=== PATIENT | male | born 1990 | race Asian ===

== ENCOUNTER 2020-01-07 10:41 | Emergency (ER) | payer OTHER ==
[~2020-01-07] VITALS: Ht 165.1 cm; Wt 74.0 kg
[2020-01-07] MEDS ORDERED: FAMOTIDINE 20 MG/2 ML VIAL IVP ONE (12:45)
[2020-01-07] MEDS ORDERED: ONDANSETRON PF 4 MG/2 ML VIAL. IV ONE (12:45)
[2020-01-07] MEDS ORDERED: KETOROLAC 15 MG/ML VIAL. IVP ONE (12:45)
[2020-01-07 12:46] LABS: BASO # 0.1 x10^3/uL (0.0-0.2); BASO % 1 % (0-3); EOS # 0.4 x10^3/uL (0.0-0.7); EOS % 4 % (0-3); HEMATOCRIT 47.3 % (39.0-53.0); HEMOGLOBIN 16.8 g/dL (13.0-17.5); LYMPH # 3.6 x10^3/uL (1.0-4.8); LYMPH % 33 % (24-48); MEAN CORPUSCULAR HEMOGLOBIN 31 pg (25-35); MEAN CORPUSCULAR HGB CONC 36 g/dL (31-37); MEAN CORPUSCULAR VOLUME 87 fL (79-100); MONO # 0.8 x10^3/uL (0.0-1.1); MONO % 8 % (0-9); NEUT % 55 % (31-73); PLATELET COUNT 163 x10^3/uL (140-400); RED BLOOD COUNT 5.43 x10^6/uL (4.30-5.70); RED CELL DISTRIBUTION WIDTH 13.5 % (11.5-14.5); WHITE BLOOD COUNT 10.9 x10^3/uL (4.0-11.0)
[2020-01-07 12:50] LABS: BILIRUBIN,URINE NEGATIVE (NEG); CLARITY,URINE CLEAR; COLOR,URINE YELLOW; NITRITE,URINE NEGATIVE (NEG); PH,URINE 5.5; PROTEIN,URINE NEGATIVE (NEG-TRACE); UROBILINOGEN,URINE 0.2 mg/dL (0.2 mg/dL)
--- NOTE | 2020-01-07 12:51 | PHYS DOC ---
Past Medical History Past Medical History: No Pertinent History Past Surgical History: No Surgical History Smoking Status: Current Every Day Smoker Alcohol Use: Occasionally Drug Use: None Adult General Chief Complaint Chief Complaint: ABDOMINAL PAIN HPI HPI Patient is a 29 year old male who presents to the ED with epigastric abdominal discomfort. He stated that the discomfort began Tuesday after eating a spicy meal. He states that the pain is a tightness that is similar to when you eat too much or drink too much. He states the pain has been constant since Tuesday and that's what brought him into the ED. He has tried [place] juice to help the pain it was unsuccessful. He states that laying on his back makes the pain worse and it is improved by laying on his stomach. He also states that eating makes the pain worse. He denies any radiation of the pain. He denies nausea, vomiting ,constipation, or diarrhea. He states his last bowel movement was earlier this morning and it was a normal. He rated the pain as 7-8 out of 10 at its worse after a meal. He currently rates it as a 5 out of 10. His last meal was last night and he last drank this morning prior to being seen. Review of Systems Review of Systems Constitutional: Denies fever or chills Respiratory: Denies cough or shortness of breath Cardiovascular: Denies chest pain or palpitations GI: Admits abdominal pain; denies nausea or vomiting Integument: Denies rash or skin lesions Neurologic: Denies headache, focal weakness or sensory changes Complete systems were reviewed and found to be within normal limits, except as documented in this note. Family History Family History Denies any pertinent family history Current Medications Current Medications Current Medications Medications (Trade) Dose Ordered Sig/Pa Start Time Stop Time Status Last Admin Dose Admin Famotidine (Pepcid Vial) 20 mg 1X ONCE 01/07/20 12:45 01/07/20 12:46 DC 01/07/20 12:45 20 MG Ketorolac Tromethamine (Toradol 15mg Vial) 15 mg 1X ONCE 01/07/20 12:45 01/07/20 12:46 DC 01/07/20 12:45 15 MG Multi-Ingredient Mouthwash/Gargle (Gi Cocktail) 20 ml 1X ONCE 01/07/20 13:00 01/07/20 13:01 DC 01/07/20 13:00 20 ML Ondansetron HCl (Zofran) 4 mg 1X ONCE 01/07/20 12:45 01/07/20 12:46 DC 01/07/20 12:45 4 MG Allergies Allergies Allergies Coded Allergies Type Severity Reaction Last Updated Verified No Known Drug Allergies 01/07/20 No Physical Exam Physical Exam Constitutional: Well developed, well nourished, uncomfortable appearance HENT: Normocephalic, atraumatic, oropharynx moist Eyes: EOMI, conjunctiva normal, no discharge Neck: Normal range of motion, no tenderness, supple Cardiovascular: Heart rate normal, regular rhythm Lungs & Thorax: Bilateral breath sounds clear to auscultation, no wheezing Abdomen: Soft, epigastric tenderness, no guarding or rebound tenderness Skin: Warm, dry, no erythema, no rash Neurologic: Alert and oriented, normal motor function, normal sensory function, no focal deficits noted Psychologic: Affect normal, judgment normal Current Patient Data Vital Signs Vital Signs Date Time Temp Pulse Resp B/P (MAP) Pulse Ox O2 Delivery O2 Flow Rate FiO2 01/07/20 11:54 97.5 74 20 128/93 (105) 96 Room Air 97.5 Lab Values Laboratory Tests Test 01/07/20 12:30 White Blood Count 10.9 x10^3/uL (4.0-11.0) Red Blood Count 5.43 x10^6/uL (4.30-5.70) Hemoglobin 16.8 g/dL (13.0-17.5) Hematocrit 47.3 % (39.0-53.0) Mean Corpuscular Volume 87 fL (79-100) Mean Corpuscular Hemoglobin 31 pg (25-35) Mean Corpuscular Hemoglobin Concent 36 g/dL (31-37) Red Cell Distribution Width 13.5 % (11.5-14.5) Platelet Count 163 x10^3/uL (140-400) Neutrophils (%) (Auto) 55 % (31-73) Lymphocytes (%) (Auto) 33 % (24-48) Monocytes (%) (Auto) 8 % (0-9) Eosinophils (%) (Auto) 4 % (0-3) H Basophils (%) (Auto) 1 % (0-3) Neutrophils # (Auto) 6.0 x10^3/uL (1.8-7.7) Lymphocytes # (Auto) 3.6 x10^3/uL (1.0-4.8) Monocytes # (Auto) 0.8 x10^3/uL (0.0-1.1) Eosinophils # (Auto) 0.4 x10^3/uL (0.0-0.7) Basophils # (Auto) 0.1 x10^3/uL (0.0-0.2) Platelet Estimate Pending Urine Collection Type Unknown Urine Color Yellow Urine Clarity Clear Urine pH 5.5 Urine Specific Eros 1.020 Urine Protein Negative mg/dL (NEG-TRACE) Urine Glucose (UA) Negative mg/dL (NEG) Urine Ketones (Stick) Negative mg/dL (NEG) Urine Blood Moderate (NEG) Urine Nitrite Negative (NEG) Urine Bilirubin Negative (NEG) Urine Urobilinogen Dipstick 0.2 mg/dL (0.2 mg/dL) Urine Leukocyte Esterase Negative (NEG) Urine RBC 1-2 /HPF (0-2) Urine WBC Occ /HPF (0-4) Urine Squamous Epithelial Cells Occ /LPF Urine Bacteria Few /HPF (0-FEW) Sodium Level 139 mmol/L (136-145) Potassium Level 4.0 mmol/L (3.5-5.1) Chloride Level 99 mmol/L (98-107) Carbon Dioxide Level 27 mmol/L (21-32) Anion Gap 13 (6-14) Blood Urea Nitrogen 15 mg/dL (8-26) Creatinine 1.0 mg/dL (0.7-1.3) Estimated GFR (Cockcroft-Gault) 89.6 BUN/Creatinine Ratio 15 (6-20) Glucose Level 150 mg/dL (70-99) H Calcium Level 9.3 mg/dL (8.5-10.1) Magnesium Level 1.8 mg/dL (1.8-2.4) Total Bilirubin 0.6 mg/dL (0.2-1.0) Aspartate Amino Transferase (AST) 42 U/L (15-37) H Alanine Aminotransferase (ALT) 104 U/L (16-63) H Alkaline Phosphatase 126 U/L (46-116) H Total Protein 8.3 g/dL (6.4-8.2) H Albumin 4.1 g/dL (3.4-5.0) Albumin/Globulin Ratio 1.0 (1.0-1.7) Lipase 579 U/L (73-393) H Laboratory Tests 01/07/20 12:30 Laboratory Tests 01/07/20 12:30 EKG EKG [] Radiology/Procedures Radiology/Procedures PROCEDURE: ABDOMEN LTD Examination: Ultrasound abdomen limited HISTORY: History of upper abdominal pain COMPARISON: None available FINDINGS: The pancreas is not well-visualized due to bowel gas. The aorta, IVC within normal limits of dimension. The gallbladder is contracted. No evidence of gallstones identified.The liver length measures 14.7 cm. The common bile duct diameter measures 2.4 mm. The right kidney measures 10.8 cm in length. IMPRESSION: 1. Contracted appearing gallbladder, otherwise unremarkable exam. Electronically signed by: Hilario Forrest MD (01/07/2020 2:03 PM) [id number] Course & Med Decision Making Course & Med Decision Making Patient is a 29-year-old male who presents to the ED with a 3 day history of epigastric abdominal pain. He describes the pain as a tightness that is located in the epigastric region without radiation. He states that eating spicy foods makes the pain worse. He tried [place] juice to help alleviate the pain but was unsuccessful. He has not taken any other medications. His last bowel movement was this morning and it was a normal bowel movement. He denied any nausea, vomiting, constipation, or diarrhea. He rated the pain as a 7-8 out of 10 at its worst and currently a 5 out of 10. In the ED he was worked up for possible acid reflux versus gastritis versus acute cholecystitis versus acute pancreatitis. In the ED he was given IV fluids, Pepcid for acid relief, Zofran for nausea and a GI cocktail. Patient reports interval improvement of symptoms. Labs are ordered and posted to chart. CMP showed slightly elevated liver enzymes and lipase.. A right upper quadrant ultrasound was ordered to evaluate for acute cholecystitis. Ultrasound without acute finding. Patient reports interval improvement of symptoms. Patient stable for discharge with outpatient follow-up with PCP/ GI. GI referral provided. Discussed findings and plan with patient, who acknowledges understanding and agreement. Dragon Disclaimer Dragon Disclaimer This electronic medical record was generated, in whole or in part, using a voice recognition dictation system. Departure Departure Impression: Primary Impression: Epigastric abdominal pain Disposition: HOME, SELF-CARE Condition: STABLE Referrals: NO PCP (PCP) CHRISTOFER THOMPSON MD Patient Instructions: Abdominal Pain (Nonspecific), Gastritis, Adult, [place] Script[facility] Famotidine (PEPCID) 20 Mg Tablet 20 MG PO BID, #30 TAB Prov: KARLOS DRIVER DO 01/07/20 KARLOS DRIVER DO Jan 07, 2020 12:51
[2020-01-07 12:59] LABS: BACTERIA,URINE FEW /HPF (0-FEW); SQUAMOUS EPITHELIAL CELL,UR OCC /LPF; WBC,URINE OCC /HPF (0-4)
[2020-01-07] MEDS ORDERED: LIDO:MAALOX 1:1 20 ML SINGLE DOSE. PO ONE (13:00)
[2020-01-07 13:02] LABS: CALCIUM 9.3 mg/dL (8.5-10.1); GFR 89.6
[2020-01-07 13:04] LABS: ALBUMIN 4.1 g/dL (3.4-5.0); MAGNESIUM 1.8 mg/dL (1.8-2.4); TOTAL BILIRUBIN 0.6 mg/dL (0.2-1.0); TOTAL PROTEIN 8.3 g/dL (6.4-8.2)
--- NOTE | 2020-01-07 14:06 | RAD ---
Examination: Ultrasound abdomen limited HISTORY: History of upper abdominal pain COMPARISON: None available FINDINGS: The pancreas is not well-visualized due to bowel gas. The aorta, IVC within normal limits of dimension. The gallbladder is contracted. No evidence of gallstones identified.The liver length measures 14.7 cm. The common bile duct diameter measures 2.4 mm. The right kidney measures 10.8 cm in length. IMPRESSION: 1. Contracted appearing gallbladder, otherwise unremarkable exam. Electronically signed by: Hilario Forrest MD (01/07/2020 2:03 PM) [id number]
[2020-01-07 14:30] VITALS: BP 119/70
[2020-01-07] MEDS ORDERED: FAMO-63 PO (14:32)
[2020-01-07 16:08] LABS: PLT ESTIMATE ADEQUATE (ADEQUATE)
== END 2020-01-07 14:37 | disposition home or self-care (01) ==
LOC: ER 10:41
DX: R10.13 Epigastric pain (principal); F17.200 Nicotine dependence, unspecified, uncomplicated
CPT/HCPCS: 36415; 76705; 80053; 81001; 83690; 83735; 85025; 96374; 96375; 99284; J1885; J2405; J3490

== ENCOUNTER 2021-04-28 00:27 | Emergency (ER) | payer OTHER ==
[~2021-04-28] VITALS: Ht 167.6 cm; Wt 73.0 kg
[~2021-04-28 00:27] MED LIST: FAMO-63 PO
[2021-04-28 02:28] VITALS: BP 149/79
[2021-04-28] MEDS ORDERED: KETOROLAC 60 MG/2 ML VIAL. IM ONE (03:30)
[2021-04-28] MEDS ORDERED: METHOCARBAMOL 750 MG TABLET PO ONE (03:30)
--- NOTE | 2021-04-28 03:42 | RAD ---
XR BILATERAL HIP (WITH OR WITHOUT PELVIS) 2 VIEWS_RIGHT History: Reason: pain / Spl. Instructions: / History: Technique: AP view the pelvis and 2 additional views of the right hip. Comparison: None. Findings: Normal alignment. No fracture. Impression: 1. No acute osseous abnormality. Electronically signed by: Woody Ayala DO (04/28/2021 3:39 AM) [facility]
[2021-04-28] MEDS ORDERED: METH-561 PO (03:56)
--- NOTE | 2021-04-28 04:03 | ED.ADGEN ---
Past Medical History Past Medical History: No Pertinent History Past Surgical History: No Surgical History Smoking Status: Current Every Day Smoker Alcohol Use: Occasionally Drug Use: None General Adult EDM: Chief Complaint: LOWER EXT PAIN HPI: HPI: Patient is a 30-year-old previously healthy male who presents to the emergency room complaining of right posterior hip pain. Patient states that this is been ongoing for several months but is gotten worse over the last week. He states the pain is worse if he tries to lay on it. It is worse if he tries to walk on it. He is not try to take anything for symptoms at home. He denies any trauma. He feels like there is something wrong with his bone. He states that it is a constant achy pain. It does not shoot into his leg. Review of Systems: Review of Systems: Complete ROS is negative unless otherwise documented in HPI Current Medications: Current Medications Medications (Trade) Dose Ordered Sig/Pa Start Time Stop Time Status Last Admin Dose Admin Ketorolac Tromethamine (Toradol Im) 60 mg 1X ONCE 04/28/21 03:30 04/28/21 03:31 DC 04/28/21 03:29 60 MG Methocarbamol (Robaxin) 750 mg 1X ONCE 04/28/21 03:30 04/28/21 03:31 DC 04/28/21 03:28 750 MG Allergies: Allergies: Allergies Coded Allergies Type Severity Reaction Last Updated Verified No Known Drug Allergies 01/07/20 No Physical Exam: PE: General: Awake, alert, NAD. Well Nourished, well hydrated. Cooperative HEENT: Atraumatic, EOMI, PERRL, airway patent, moist oral mucosa Neck: Supple, trachea midline Respiratory: CTA bilaterally, normal effort, no wheezing/crackles CV: RRR, no murmur, cap refill <2 GI: Soft, nondistended, nontender, no masses MSK: Right hip: No tenderness on palpation, normal range of motion, able to bear weight. Skin: Warm, dry, intact Neuro: A&O x3, speech NL, sensory and motor grossly intact, no focal deficits Psych: Normal affect, normal mood, not suicidal or homicidal Current Patient Data: Vital Signs: Vital Signs Date Time Temp Pulse Resp B/P (MAP) Pulse Ox O2 Delivery O2 Flow Rate FiO2 04/28/21 02:28 98.4 90 18 149/79 (102) 97 Room Air 98.4 EKG: EKG: [] Heart Score: C/O Chest Pain: N/A Risk Factors: Risk Factors: DM, Current or recent (<one month) smoker, HTN, HLP, family history of CAD, obesity. Risk Scores: Score 0 - 3: 2.5% MACE over next 6 weeks - Discharge Home Score 4 - 6: 20.3% MACE over next 6 weeks - Admit for Clinical Observation Score 7 - 10: 72.7% MACE over next 6 weeks - Early Invasive Strategies Radiology/Procedures: Radiology/Procedures: [] Course & Med Decision Making: Course & Med Decision Making Pertinent Labs and Imaging studies reviewed. (See chart for details) Patient is 30-year-old male presents to the emergency room with hip pain that is been ongoing for months. No traumatic injuries. X-ray was done does not show any pathology of the bone. Will refer him to orthopedic surgery. Patient treated symptomatically. Patient's test results and vitals while in the ED were fully reviewed and discussed with the patient. Patient is stable and at this time does not need admission to the hospital. We have discussed strict return precautions and the importance of following up with their Primary Care Physician. Patient stated understanding and was given an opportunity to ask any questions. Patient is in agreement with plan. Ronni Disclaimer: Ronni Disclaimer: This electronic medical record was generated, in whole or in part, using a voice recognition dictation system. Departure Departure Impression: Primary Impression: Hip pain Disposition: HOME / SELF CARE / HOMELESS Condition: STABLE Referrals: NO PCP (PCP) CHELLY MENESES MD Patient Instructions: Hip Pain Scripts Methocarbamol (METHOCARBAMOL) 500 Mg Tablet 500 MG PO QID PRN for MUSCLE PAIN for 5 Days, #20 TAB Prov: ZULEYMA LARIOS MD 04/28/21 ZULEYMA LARIOS MD Apr 28, 2021 04:03
== END 2021-04-28 05:40 | disposition home or self-care (01) ==
LOC: ER 00:27
DX: M25.551 Pain in right hip (principal); F17.200 Nicotine dependence, unspecified, uncomplicated
CPT/HCPCS: 73502; 96372; 99283; J1885